=== PATIENT | female | born 1990 | race African-American/Black ===

== ENCOUNTER 2016-10-10 19:32 | Emergency (ER) | payer OTHER ==
[~2016-10-10] VITALS: Ht 149.9 cm; Wt 68.0 kg
[~2016-10-10 19:32] MED LIST: ALBUTEROL SULF8.5 GM INH; KEFLEX500 MG ORAL; NKM; ONDANSETRON ODT4 MG ORAL; PREDNISONE20 MG PO
[2016-10-10 19:59] VITALS: BP 133/91
[2016-10-10] MEDS ORDERED: Lidocaine 1% 10mg/ml/Epi 0.005mg/ml 30ml vial INJ ONE (20:30)
[2016-10-10] MEDS ORDERED: TYLENOL EXTRA500 MG ORAL (21:15)
[2016-10-10 21:32] VITALS: BP 128/87
--- NOTE | 2016-10-11 14:47 | Emergency Room Report ---
History of Present Illness General Chief Complaint: Laceration Source: Patient Present Illness HPI 26-year-old female presents to ED status post laceration. Patient states she was at her friend's house when something fell off a shelf above her and hit her in the head. No LOC. Patient notes laceration to the left christianity. Tetanus is up-to-date. Notes mild pain, 7/10, throbbing. Nonradiating. No aggravating or relieving factors. Denies photophobia, blurry vision, nausea or vomiting. Denies any other associated symptom Allergies: Coded Allergies: No Known Allergies (Unverified , 06/29/16) Patient History Past Medical History: asthma Past Surgical History: none Pertinent Family History: none Social History: Denies: alcohol use, drug use, smoking Last Menstrual Period: 09/28/16 Now: No Immunizations: UTD Reviewed Nursing Documentation: PMH: Agreed, PSxH: Agreed Nursing Documentation-PMH Past Medical History: No History, Except For Hx Asthma: Yes Review of Systems All Other Systems: negative except mentioned in HPI Physical Exam Vital Signs Date Time Temp Pulse Resp B/P Pulse Ox O2 Delivery O2 Flow Rate FiO2 10/10/16 19:43 98.2 76 14 133/91 100 Room Air Sp02 EP Interpretation: reviewed, normal General Appearance: no apparent distress, alert, GCS 15, non-toxic Head: normocephalic, other - 1cm laceration to L christianity. no active bleeding Eyes: bilateral eye PERRL, bilateral eye normal inspection ENT: normal ENT inspection Neck: normal inspection Respiratory: normal inspection Cardiovascular #1: normal inspection Gastrointestinal: normal inspection Rectal: deferred Genitourinary: no CVA tenderness Musculoskeletal: normal inspection Neurologic: alert, oriented x3, responsive, motor strength/tone normal, sensory intact, speech normal Psychiatric: normal inspection Skin: normal inspection Lymphatic: normal inspection Procedures Laceration/Wound Repair Laceration/Wound Repair : Consent: Emergent Wound Location: head - L christianity Wound's Depth, Shape: linear Wound Explored: clean Betadine Prep?: Yes Anesthesia: Lidocaine w/ Epi Wound Debrided: minimal Wound Repaired With: sutures Suture Size/Type: 6:0, proline Layer Closure?: No Sterile Dressing Applied?: No Splint Applied?: Yes Sling Applied?: No Patient Tolerated: Well Complications: None Medical Decision Making Diagnostic Impression: Primary Impression: Laceration ER Course Hospital Course 26-year-old F presents to ED s/p laceration L christianity s/p object falling. no LOC Clinical course Patient placed on stretcher. After initial history and physical, anesthesia provided with lidocaine. Laceration repaired w/o complication. Dressing applied. Diagnosis - laceration Stable and discharged to home. wound Care instructions given. Followup with PMD in 5-7 days for suture removal. Return to ED if any signs of infection develop Last Vital Signs Date Time Temp Pulse Resp B/P Pulse Ox O2 Delivery O2 Flow Rate FiO2 10/10/16 21:32 98.2 71 18 128/87 100 Room Air Status: improved Disposition: HOME, SELF-CARE Condition: Stable Scripts Acetaminophen* (TYLENOL EXTRA STRENGTH*) 500 Mg Tablet 500 MG ORAL Q8H Y for Prn Headache/Temp > 101, #30 TAB 0 Refills Prov: JORGE WHITE M.D. 10/10/16 Referrals: [facility],REFERRING (PCP) Patient Instructions: Facial Laceration Additional Instructions: have sutures removed in 5-7 days. return to ED if any signs of infection develop JORGE WHITE M.D. Oct 11, 2016 14:47
== END 2016-10-10 21:33 | disposition home or self-care (01) ==
LOC: EMR 20:09
DX: S01.81XA Laceration without foreign body of other part of head, initial encounter (principal); W20.8XXA Other cause of strike by thrown, projected or falling object, initial encounter; Y92.009 Unspecified place in unspecified non-institutional (private) residence as the place of occurrence of the external cause
CPT/HCPCS: 12011; 99284; Z7502

== ENCOUNTER 2019-07-16 14:53 | Emergency (ER) | payer MEDICAID, OTHER ==
[~2019-07-16] VITALS: Ht 149.9 cm; Wt 72.6 kg
[~2019-07-16 14:53] MED LIST changes: +TYLENOL EXTRA500 MG ORAL
[2019-07-16] MEDS ORDERED: Omnipaque-300 100ml vial INJ PRN (16:15)
--- NOTE | 2019-07-16 16:15 | NUR ---
ED Nurse Note:pt. came due to lower back pain no injury
--- NOTE | 2019-07-16 16:26 | NUR ---
ED Nurse Note:blood and urine sent to labs
[2019-07-16 16:34] VITALS: BP 119/77
[2019-07-16 16:50] LABS: APPEARANCE,URINE CLEAR; BILIRUBIN, URINE NEGATIVE (NEGATIVE); COLOR,URINE PALE YELLOW; GLUCOSE, URINE (UA) NEGATIVE (NEGATIVE); KETONES,URINE NEGATIVE (NEGATIVE); LEUKOCYTE ESTERASE ,URINE NEGATIVE (NEGATIVE); NITRITE,URINE NEGATIVE (NEGATIVE); PH,URINE 5 (4.5-8.0); PROTEIN,URINE 1+ (NEGATIVE); UROBILINOGEN,URINE NORMAL MG/DL (0.0-1.0)
[2019-07-16 16:54] LABS: BASOPHILS % (AUTO) 1.1 % (0.0-2.0); EOSINOPHILS % (AUTO) 0.7 % (0.0-3.0); HEMATOCRIT 40.3 % (37.0-47.0); HEMOGLOBIN 13.6 G/DL (12.0-16.0); LYMPHOCYTES % (AUTO) 25.8 % (20.0-45.0); MEAN CORPUSCULAR VOLUME 78 FL (80-99); MONOCYTES % (AUTO) 7.1 % (1.0-10.0); NEUTROPHILS % (AUTO) 65.3 % (45.0-75.0); PLATELET COUNT 235 K/UL (150-450); RED BLOOD COUNT 5.18 M/UL (4.20-5.40); RED CELL DISTRIBUTION WIDTH 12.7 % (11.6-14.8); WHITE BLOOD COUNT 10.7 K/UL (4.8-10.8)
[2019-07-16 17:34] LABS: ANION GAP 11 mmol/L (5-15); BLOOD UREA NITROGEN 12 mg/dL (7-18); CALCIUM 9.7 MG/DL (8.5-10.1); CARBON DIOXIDE 26 MMOL/L (21-32); CHLORIDE 103 MMOL/L (98-107); CREATININE 0.7 MG/DL (0.55-1.30); POTASSIUM 4.7 MMOL/L (3.5-5.1); SODIUM 139 MMOL/L (136-145)
[2019-07-16 17:39] LABS: ALANINE AMINOTRANSFERASE 19 U/L (12-78); ALBUMIN/GLOBULIN RATIO 0.9 (1.0-2.7); ALKALINE PHOSPHATASE 70 U/L (46-116); ASPARTATE AMINO TRANSFERASE 20 U/L (15-37); BILIRUBIN,TOTAL 0.3 MG/DL (0.2-1.0)
--- NOTE | 2019-07-16 18:17 | NUR ---
ED Nurse Note:pt. had CT done
--- NOTE | 2019-07-16 18:26 | Diagnostic Imaging Report ---
Clinical Indication: Right-sided abdominal pain Technique: No oral contrast utilized, per emergency room physician request IV administration nonionic contrast. Venous phase spiral acquisition obtained through the abdomen and pelvis. Multiplanar reconstructions were generated. Total dose length product 874 mGycm. CTDIvol(s) 16 mGy. Dose reduction achieved using automated exposure control Comparison: none Findings: There is considerable retained colonic stool, particularly proximally. The appendix is normal. No small bowel distention. No free or loculated intraperitoneal gas or fluid is evident. The distal esophagus and stomach are unremarkable. There is a small fat-containing umbilical hernia The liver, gallbladder, bile ducts, pancreas, spleen, adrenals, kidneys are unremarkable. No retroperitoneal or mesenteric mass or adenopathy. No pelvic mass or adenopathy. The uterus is somewhat heterogeneous. There is suggestion of a collapsed left ovarian follicle The included lung bases demonstrate some linear atelectasis or scarring. The bones are unremarkable. Impression: Stool-filled colon, particularly proximally, could indicate constipation. Correlate with clinical history No acute process otherwise Evidence of collapsed left ovarian cyst, could indicate recent follicular rupture Incidental finding small fat-containing umbilical hernia This agrees with the preliminary interpretation provided overnight by [employer] teleradiology service. The CT scanner at [facility] is accredited by the [employer] and the scans are performed using protocols designed to limit radiation exposure to as low as reasonably achievable to attain images of sufficient resolution adequate for diagnostic evaluation.
--- NOTE | 2019-07-16 18:41 | Emergency Room Report ---
History of Present Illness General Chief Complaint: Back Pain-No Injury Source: Medical Record Present Illness HPI 29-year-old female with no segment past medical history here complaining of 2 days of right flank pain without any radiation to pubic area. Denies any fall or injury or heavy lifting. Rating her pain 7 out of 10 and has not taken medication for pain. Denies urinary frequency, hematuria, dysuria. Denies fever and chills, nausea vomiting. Denies history of renal stone or renal infection. Denies chest pain, shortness of breath, palpitation, abdominal pain , and all other associated symptoms. Reports that she is up-to-date with immunization, and last menstrual period was 3 weeks ago and is not sexually active. Denies history of ovarian cyst and uterine fibroids. Denies irregular vaginal bleeding. Allergies: Coded Allergies: No Known Allergies (Unverified , 06/29/16) Patient History Past Medical History: see triage record Past Surgical History: unable to obtain Pertinent Family History: none Last Menstrual Period: 06/19/19 Now: No Immunizations: UTD Reviewed Nursing Documentation: PMH: Agreed; PSxH: Agreed Nursing Documentation-PMH Past Medical History: No History, Except For Hx Asthma: Yes Review of Systems All Other Systems: negative except mentioned in HPI Physical Exam Vital Signs Date Time Temp Pulse Resp B/P (MAP) Pulse Ox O2 Delivery O2 Flow Rate FiO2 07/16/19 15:19 98.6 82 18 119/77 (91) 99 Room Air Sp02 EP Interpretation: reviewed, normal General Appearance: no apparent distress, alert, GCS 15, non-toxic Head: normocephalic, atraumatic Eyes: bilateral eye normal inspection, bilateral eye PERRL ENT: hearing grossly normal, normal pharynx, no angioedema, normal voice Neck: full range of motion, supple/symm/no masses Respiratory: chest non-tender, lungs clear, normal breath sounds, no rhonchi, speaking full sentences Cardiovascular #1: regular rate, rhythm, no edema, no murmur Gastrointestinal: normal bowel sounds, non tender, soft, non-distended, no guarding, no rebound Rectal: deferred Genitourinary: no CVA tenderness Musculoskeletal: back normal, gait/station normal, normal range of motion, non- tender, no calf tenderness Neurologic: alert, oriented x3, responsive, motor strength/tone normal, sensory intact, speech normal Psychiatric: judgement/insight normal, memory normal, mood/affect normal, no suicidal/homicidal ideation Skin: no rash Lymphatic: no adenopathy Medical Decision Making PA Attestation All my diagnosis and treatment plans were reviewed ad discussed with my supervising physician Dr. Beckwith Diagnostic Impression: Primary Impression: Lumbar strain Additional Impression: Adnexal mass ER Course 29-year-old female with no segment past medical history here complaining of 2 days of right flank pain without any radiation to pubic area. Denies any fall or injury or heavy lifting. Rating her pain 7 out of 10 and has not taken medication for pain. Denies urinary frequency, hematuria, dysuria. Denies fever and chills, nausea vomiting. Denies history of renal stone or renal infection. Denies chest pain, shortness of breath, palpitation, abdominal pain , and all other associated symptoms. Reports that she is up-to-date with immunization, and last menstrual period was 3 weeks ago and is not sexually active. Denies history of ovarian cyst and uterine fibroids. Denies irregular vaginal bleeding. Ddx considered but are not limited to: Pyelonephritis, UTI ,lumbar spine sprain , strain, fracture, contusion, neuropathy Vital signs: are WNL, pt. is afebrile H&PE are most consistent with: Lumbar strain, left adnexal mass ORDERS: No x-ray necessary since there was no fall or injury. CT scan of abdomen, CBC, CMP, UA, urine test, ibuprofen, Robaxin, lidocaine patch ER intervention: None DISCHARGE: At this time pt. is stable for d/c to home. Will provide printed patient care instructions, and any necessary prescriptions. Care plan and follow up instructions have been discussed with the patient prior to discharge. Since adnexal mass is on the left side and not at the site of pain is not correlated to patient's symptoms. Patient does not have a renal infection or renal stone. Patient follow-up with primary care provider for further assessment. Also referral to esthetician needed for further assessment of adnexal mass that is 1.9 cm. Patient agrees with the above treatment. Hours if worsening symptoms return to the emergency room. CT/MRI/US Diagnostic Results CT/MRI/US Diagnostic Results : Imaging Test Ordered: CT abd pelvis with contrast Impression CT ABDOMEN & PELVIS With Contrast: A 1.9 cm crenated left adnexal cystic structure and trace pelvic free fluid can be seen in the setting of physiologic follicle rupture. Moderate colonic stool is suggestive of constipation. Bowel is nondilated. No free air, diverticulitis, or appendicitis. Small fat-containing periumbilical hernia. Last Vital Signs Date Time Temp Pulse Resp B/P (MAP) Pulse Ox O2 Delivery O2 Flow Rate FiO2 07/16/19 16:34 98.6 72 18 119/77 99 Room Air Disposition: HOME, SELF-CARE Condition: Stable Scripts Methocarbamol* (ROBAXIN-500*) 500 Mg Tablet 500 MG ORAL TID PRN for For Pain, #15 TAB 0 Refills Prov: Dalia Hinojosa 07/16/19 Ibuprofen (Ibu) 800 Mg Tablet 800 MG PO BID, #20 TAB Prov: Dalia Hinojosa 07/16/19 Lidocaine Patch* (Lidoderm Patch*) 1 Each Adh..patch 1 PATCH TOPIC DAILY, #7 PATCH 0 Refills Patch(es) may remain in place for up to 12 hours in any 24-hour period. Prov: Dalia Hinojosa 07/16/19 Referrals: NOT CHOSEN [facility],REFERRING (PCP) Patient Instructions: Back Pain, Adult, Pelvic Mass Additional Instructions: Take medication, follow-up with your primary care provider for referral to OB/ [facility] for the mass that has been found on the left adnexa. He needs further assessment by a specialist in order to determine whether it is benign versus malignant. No signs of urinary tract infection noted. If worsening symptoms return to the emergency room. Dalia Hinojosa Jul 16, 2019 18:41
[2019-07-16] MEDS ORDERED: ROBAXIN-500MG ORAL (18:42)
[2019-07-16] MEDS ORDERED: IBU800 MG PO (18:42)
[2019-07-16] MEDS ORDERED: LIDODERM700 M1 TOPIC (18:42)
[2019-07-16 18:44] VITALS: BP 119/77
--- NOTE | 2019-07-16 18:50 | NUR ---
ER DISCHARGE NOTE: Patient is cleared to be discharged per ERMD, pt is aox4, on room air, with stable vital signs. pt was given dc and prescription instructions, pt was able to verbalize understanding, pt id band and iv site removed without complications. pt is able to ambulate with steady gait. pt took all belongings.
== END 2019-07-16 18:57 | disposition home or self-care (01) ==
LOC: EMR 15:45
DX: S39.012A Strain of muscle, fascia and tendon of lower back, initial encounter (principal); K42.9 Umbilical hernia without obstruction or gangrene; R19.09 Other intra-abdominal and pelvic swelling, mass and lump; J45.909 Unspecified asthma, uncomplicated; X58.XXXA Exposure to other specified factors, initial encounter; Y92.9 Unspecified place or not applicable
CPT/HCPCS: 36415; 74177; 80053; 81001; 81025; 85025; Q9967; Z7502; 99284